=== PATIENT | male | born 1970 | race American Indian/Alaskan Native ===

== ENCOUNTER 2020-10-25 17:25 | Emergency (ER) | payer SELFPAY ==
[2020-10-25 17:52] VITALS: BP 156/89
--- NOTE | 2020-10-25 19:02 | Event Note ---
ED Screening Note ED Screening Note: pt present with loss of sense of taste and smell since yesterday nasal congestion, SAMANO mild dry cough no n/v/d, no fever, no SOB, no CP states also been off metformin for one year states he has tingling in his toes bilateral feet neurovascularly intact, no edema, no ulceration BG is 400 This initial assessment/diagnostic orders/clinical plan/treatment(s) is/are subject to change based on patients health status, clinical progression and re- assessment by fellow clinical providers in the ED. Further treatment and workup at subsequent clinical providers discretion. Patient/guardian urged not to elope from the ED as their condition may be serious if not clinically assessed and managed. Initial orders include: labs
[2020-10-25 19:54] LABS: Basophils % (Auto) 0.4 % (0.0-1.8); Eosinophils # (Auto) 0.3 K/mm3 (0.0-0.4); Eosinophils % (Auto) 4.9 % (0.0-4.3); Hematocrit 46.1 % (35.5-45.6); Hemoglobin 15.8 gm/dl (11.8-15.2); Lymphocytes # (Auto) 2.7 K/mm3 (1.2-5.4); Lymphocytes % (Auto) 47.2 % (13.4-35.0); Mean Corpuscular HGB Conc 34 % (32-34); Mean Corpuscular Volume 89 fl (84-94); Monocytes # (Auto) 0.5 K/mm3 (0.0-0.8); Monocytes % (Auto) 8.8 % (0.0-7.3); Platelet Count 225 K/mm3 (140-440); Red Blood Count 5.17 M/mm3 (3.65-5.03); Red Cell Distribution Width 12.8 % (13.2-15.2)
[2020-10-25 20:16] LABS: Alanine Aminotransferase 27 units/L (7-56); Albumin 4.1 g/dL (3.9-5); BUN/Creatinine Ratio 13; Blood Urea Nitrogen 13 mg/dL (9-20); Calcium 9.5 mg/dL (8.4-10.2); Hemolysis Index 12
[2020-10-25] MEDS ORDERED: INSULIN REGULAR, HUMAN 100 UNIT/ML 3ML VIAL IV ONE (20:20)
[2020-10-25] MEDS ORDERED: SODIUM CHLORIDE 0.9% 1000 ML 1,000 ML IV ONE (20:20)
--- NOTE | 2020-10-25 20:55 | Emergency Department Report ---
ED General Adult HPI - General Chief complaint: Headache Stated complaint: LOSS OF TASTE; HEADACHE Time Seen by Provider: 10/25/20 18:31 Source: patient Mode of arrival: Ambulatory Limitations: No Limitations - History of Present Illness Initial comments: 50 y/o obese diabetic male whom has stopped his metformin without the guidance of his PCP due to unwanted bowel side effects presents to ED c/o of shooting pain to toes and occasional pain shooting to forehead. Polydypsia noted the past several weeks too. -: week(s) Location: head, lower extremity (sharp burning and shooting pain to toes) - Related Data Home Medications Medication Instructions Recorded Confirmed Last Taken amLODIPine/ATORVASTATIN 1 tab PO DAILY 10/24/14 10/24/14 10/24/14 [Amlodipine-Atorvast 2.5-10 mg] lisinopriL [Zestril] 10 mg PO QDAY 10/24/14 10/24/14 10/24/14 metFORMIN [Glucophage] 500 mg PO BID 10/24/14 10/24/14 10/14/14 Previous Rx's Medication Instructions Recorded Last Taken Type HYDROcodone/APAP 5-325 [[place] 1 each PO Q6HR PRN #14 tablet 10/24/14 Unknown Rx 5-325 mg TAB] Sulfamethoxazole/Trimethoprim 1 each PO BID #20 tablet 10/24/14 Unknown Rx [Bactrim Ds] glipiZIDE [Glucotrol] 5 mg PO BID #30 tablet 10/25/20 Unknown Rx Allergies Allergy/AdvReac Type Severity Reaction Status Date / Time venom-honey bee Allergy Anaphylaxis Verified 07/20/15 17:56 [bee venom (honey bee)] ED Review of Systems ROS: Stated complaint: LOSS OF TASTE; HEADACHE Other details as noted in HPI ED Past Medical Hx - Past Medical History Previous Medical History?: Yes Hx Hypertension: Yes Hx Diabetes: Yes - Surgical History Past Surgical History?: Yes Additional Surgical History: RIGHT LEG SURGERY - Social History Smoking Status: Former Smoker Substance Use Type: None - Medications Home Medications: Home Medications Medication Instructions Recorded Confirmed Last Taken Type HYDROcodone/APAP 5-325 [[place] 1 each PO Q6HR PRN #14 tablet 10/24/14 Unknown Rx 5-325 mg TAB] Sulfamethoxazole/Trimethoprim 1 each PO BID #20 tablet 10/24/14 Unknown Rx [Bactrim Ds] amLODIPine/ATORVASTATIN 1 tab PO DAILY 10/24/14 10/24/14 10/24/14 History [Amlodipine-Atorvast 2.5-10 mg] lisinopriL [Zestril] 10 mg PO QDAY 10/24/14 10/24/14 10/24/14 History metFORMIN [Glucophage] 500 mg PO BID 10/24/14 10/24/14 10/14/14 History glipiZIDE [Glucotrol] 5 mg PO BID #30 tablet 10/25/20 Unknown Rx ED Physical Exam - General Limitations: No Limitations General appearance: alert, in no apparent distress - Head Head exam: Present: atraumatic, normocephalic - Eye Eye exam: Present: normal appearance - ENT ENT exam: Present: normal exam, normal orophraynx, mucous membranes moist - Neck Neck exam: Present: normal inspection - Respiratory Respiratory exam: Present: normal lung sounds bilaterally. Absent: respiratory distress - Cardiovascular Cardiovascular Exam: Present: regular rate, normal rhythm. Absent: systolic murmur, diastolic murmur, rubs, gallop - GI/Abdominal GI/Abdominal exam: Present: soft, normal bowel sounds - Rectal Rectal exam: Present: deferred - Extremities Exam Extremities exam: Present: normal inspection - Back Exam Back exam: Present: normal inspection - Neurological Exam Neurological exam: Present: alert, oriented X3 - Psychiatric Psychiatric exam: Present: normal affect, normal mood - Skin Skin exam: Present: warm, dry, intact, normal color. Absent: rash ED Course Vital Signs 10/25/20 17:51 Temperature 98.3 F Pulse Rate 94 H Respiratory 16 Rate Blood Pressure 156/89 [Right] O2 Sat by Pulse 100 Oximetry ED Medical Decision Making - Lab Data Result diagrams: 10/25/20 19:41 10/25/20 19:41 Critical care attestation.: If time is entered above; I have spent that time in minutes in the direct care of this critically ill patient, excluding procedure time. ED Disposition Clinical Impression: Neuropathy, Elevated glucose level Disposition: -01 TO HOME OR SELFCARE Is pt being admited?: No Does the pt Need Aspirin: No Condition: Stable Instructions: Neuropathic Pain, Peripheral Neuropathy, Hyperglycemia, [id number], Type 2 Diabetes Mellitus, Diagnosis, Adult, Tips for Eating Away From Home If You Have Diabetes, Diabetes Mellitus and Foot Care, Living With Diabetes, Form - Diabetes Action Plan Prescriptions: glipiZIDE [Glucotrol] 5 mg PO BID #30 tablet Referrals: QUINTON PALOMINO MD [Primary Care Provider] - 3-5 Days
== END 2020-10-25 21:17 | disposition home or self-care (01) ==
LOC: ED 17:25
DX: G62.9 Polyneuropathy, unspecified (principal); I10 Essential (primary) hypertension; E11.9 Type 2 diabetes mellitus without complications; Z79.899 Other long term (current) drug therapy; Z91.048 Other nonmedicinal substance allergy status; Z98.890 Other specified postprocedural states; Z87.891 Personal history of nicotine dependence
CPT/HCPCS: 36415; 80053; 82805; 82962; 85025

== ENCOUNTER 2020-12-29 18:16 | Emergency (ER) | payer SELFPAY ==
[2020-12-29 19:37] VITALS: BP 143/84
[2020-12-29] MEDS ORDERED: LIDOCAINE (2%) 20 MG/1 ML VIAL 20 ML MDV INFILTRATI STA (20:08)
--- NOTE | 2020-12-29 20:18 | Emergency Department Report ---
ED Lower Extremity HPI - General Chief Complaint: Extremity Injury, Lower Stated Complaint: GLASS IN LT FOOT Time Seen by Provider: 12/29/20 20:07 Source: patient Mode of arrival: Ambulatory Limitations: No Limitations - History of Present Illness Initial Comments: 50-year-old F [place] male with a known history of of diabetes presents emerged department complaining of stepping on a piece of glass 2 days ago and has a strong believe that there is some retained foreign body there which he needs to retrieve. Noticed some mild swelling to the area since the incident but reports no fever, chills, sweats. MD Complaint: foot injury -: Sudden Injury: Foot: Left Type of Injury: puncture wound Place: home Severity: mild, moderate Improves With: nothing Worsens With: nothing, weight bearing, palpation Context: direct blow Associated Symptoms: able to partially bear weight - Related Data Home Medications Medication Instructions Recorded Confirmed Last Taken amLODIPine/ATORVASTATIN 1 tab PO DAILY 10/24/14 10/24/14 10/24/14 [Amlodipine-Atorvast 2.5-10 mg] lisinopriL [Zestril] 10 mg PO QDAY 10/24/14 10/24/14 10/24/14 metFORMIN [Glucophage] 500 mg PO BID 10/24/14 10/24/14 10/14/14 Previous Rx's Medication Instructions Recorded Last Taken Type HYDROcodone/APAP 5-325 [[place] 1 each PO Q6HR PRN #14 tablet 10/24/14 Unknown Rx 5-325 mg TAB] Sulfamethoxazole/Trimethoprim 1 each PO BID #20 tablet 10/24/14 Unknown Rx [Bactrim Ds] glipiZIDE [Glucotrol] 5 mg PO BID #30 tablet 10/25/20 Unknown Rx Chlorhexidine Gluconate 5 ml TP TID #240 liquid 12/29/20 Unknown Rx [Antiseptic Skin Cleanser] Sulfamethoxazole/Trimethoprim 1 each PO BID #20 tablet 12/29/20 Unknown Rx [Bactrim DS TAB] cephALEXin [Keflex] 500 mg PO Q8HR #30 cap 12/29/20 Unknown Rx Allergies Allergy/AdvReac Type Severity Reaction Status Date / Time venom-honey bee Allergy Anaphylaxis Verified 07/20/15 17:56 [bee venom (honey bee)] ED Review of Systems ROS: Stated complaint: GLASS IN LT FOOT Other details as noted in HPI Comment: All other systems reviewed and negative ED Past Medical Hx - Past Medical History Previous Medical History?: Yes Hx Hypertension: Yes Hx Diabetes: Yes - Surgical History Past Surgical History?: Yes Additional Surgical History: RIGHT LEG SURGERY - Social History Smoking Status: Current Every Day Smoker Substance Use Type: Alcohol, Marijuana - Medications Home Medications: Home Medications Medication Instructions Recorded Confirmed Last Taken Type HYDROcodone/APAP 5-325 [[place] 1 each PO Q6HR PRN #14 tablet 10/24/14 Unknown Rx 5-325 mg TAB] Sulfamethoxazole/Trimethoprim 1 each PO BID #20 tablet 10/24/14 Unknown Rx [Bactrim Ds] amLODIPine/ATORVASTATIN 1 tab PO DAILY 10/24/14 10/24/14 10/24/14 History [Amlodipine-Atorvast 2.5-10 mg] lisinopriL [Zestril] 10 mg PO QDAY 10/24/14 10/24/14 10/24/14 History metFORMIN [Glucophage] 500 mg PO BID 10/24/14 10/24/14 10/14/14 History glipiZIDE [Glucotrol] 5 mg PO BID #30 tablet 10/25/20 Unknown Rx Chlorhexidine Gluconate 5 ml TP TID #240 liquid 12/29/20 Unknown Rx [Antiseptic Skin Cleanser] Sulfamethoxazole/Trimethoprim 1 each PO BID #20 tablet 12/29/20 Unknown Rx [Bactrim DS TAB] cephALEXin [Keflex] 500 mg PO Q8HR #30 cap 12/29/20 Unknown Rx ED Physical Exam - General Limitations: No Limitations General appearance: alert, in no apparent distress - Head Head exam: Present: atraumatic, normocephalic, normal inspection - Eye Eye exam: Present: normal appearance, PERRL, EOMI. Absent: conjunctival injection, periorbital swelling, periorbital tenderness Pupils: Present: normal accommodation - ENT ENT exam: Present: normal exam, mucous membranes moist, TM's normal bilaterally, normal external ear exam - Neck Neck exam: Present: normal inspection, tenderness, full ROM - Respiratory Respiratory exam: Present: normal lung sounds bilaterally. Absent: respiratory distress, wheezes, rales, chest wall tenderness, accessory muscle use - Cardiovascular Cardiovascular Exam: Present: regular rate, normal rhythm. Absent: systolic murmur, diastolic murmur, rubs, gallop - GI/Abdominal GI/Abdominal exam: Present: soft, normal bowel sounds - Rectal Rectal exam: Present: deferred - Extremities Exam Extremities exam: Present: normal inspection - Back Exam Back exam: Present: normal inspection. Absent: CVA tenderness (R), CVA tenderness (L) - Neurological Exam Neurological exam: Present: alert, oriented X3, CN II-XII intact, normal gait - Psychiatric Psychiatric exam: Present: normal affect, normal mood - Skin Skin exam: Present: warm, dry, intact, normal color. Absent: rash ED Course Vital Signs 12/29/20 19:31 Temperature 98.3 F Pulse Rate 90 Respiratory 20 Rate Blood Pressure 143/84 O2 Sat by Pulse 96 Oximetry - Procedure Description Procedures done: Area was prepped and draped in sterile fashion anesthesia achieved with 2% lidocaine with no epinephrine. An elliptical incision was incised around the area which was extracted scant pus was also evacuated area was irrigated with copious saline and a medicated bandage was placed. Procedure tolerated well Critical care attestation.: If time is entered above; I have spent that time in minutes in the direct care of this critically ill patient, excluding procedure time. ED Disposition Clinical Impression: Foreign body in foot, left, Foot infection Disposition: DC- TO HOME OR SELFCARE Is pt being admited?: No Does the pt Need Aspirin: No Condition: Stable Instructions: Skin Foreign Body, Sliver Removal, Care After Prescriptions: Chlorhexidine Gluconate [Antiseptic Skin Cleanser] 5 ml TP TID #240 liquid Sulfamethoxazole/Trimethoprim [Bactrim DS TAB] 1 each PO BID #20 tablet cephALEXin [Keflex] 500 mg PO Q8HR #30 cap Referrals: [facility] [Provider Group] - 3-5 Days PRIMARY CARE, [Primary Care Provider] - 3-5 Days Forms: Work/School Release Form(ED)
--- NOTE | 2020-12-29 20:52 | XRay Report ---
HISTORY:fb foot COMPARISON: None. TECHNIQUE: AP lateral and obliques views were obtained FINDINGS: Bones: No fracture or dislocation. Joint spaces: Maintained. Soft tissues: No significant abnormality. Additional findings: Questionable foreign body overlying the region of the great toe IMPRESSION: 1. Questionable foreign body. Signer Name: Jose Contreras MD Signed: 12/29/2020 8:47 PM Workstation Name: [id number]
== END 2020-12-29 21:30 | disposition home or self-care (01) ==
LOC: ED 18:16
DX: S91.342A Puncture wound with foreign body, left foot, initial encounter (principal); L08.9 Local infection of the skin and subcutaneous tissue, unspecified; I10 Essential (primary) hypertension; E11.9 Type 2 diabetes mellitus without complications; F17.200 Nicotine dependence, unspecified, uncomplicated; F12.10 Cannabis abuse, uncomplicated; Z98.890 Other specified postprocedural states; Z79.899 Other long term (current) drug therapy; Z91.030 Bee allergy status; W22.8XXA Striking against or struck by other objects, initial encounter; Y93.89 Activity, other specified; Y92.89 Other specified places as the place of occurrence of the external cause; Y99.8 Other external cause status